=== PATIENT | female | born 1980 | race Caucasian/White ===

== ENCOUNTER → 2017-09-25 11:59 | Outpatient (CLI) | payer OTHER, SELFPAY ==
[2017-09-25 14:22] LABS: Absolute Lymphocyte Count 1.67 X10^3/ul (0.83-4.51); Absolute Neutrophil Count 5.6 X10^3/uL (2.0-7.7); BUN 14 mg/dL (7-18); Basophil# 0.02 X10^3/uL; Basophil% 0.2 % (0-1); Creatinine, Serum 0.65 mg/dL (0.55-1.02); Eosinophil# 0.07 X10^3/uL; Eosinophils% 0.9 % (0-5); Glucose 90 mg/dL (74-106); Hematocrit 39.6 % (37-47); Lymphocyte # 1.67 X10^3/ul (4.0); Lymphocyte % 20.8 % (19-41); Mean Corp Hgb Conc 32.8 g/gl (32-36); Mean Corpuscular Hgb 32.5 pg (27.0-32.0); Mean Platelet Vol. 10.2 fl (6.2-12.0); Monocyte# 0.64 X10^3/uL; Neutrophil # 5.63 X10^3/uL (2.7-7.7); Platelet Count 262 K/mm3 (150-450); RBC Distribution Width CV 11.9 % (11.6-14.6); RBC Distribution Width SD 42.8 fl (35.1-43.9)
[2017-09-25 14:23] LABS: ALB/GLOB Ratio 1.1 RATIO (0.9-2.4); AST(SGOT) 18 U/L (15-37); Alanine Aminotransfer ALT/SGPT 17 U/L (13-56); Albumin, Serum 3.6 g/dL (3.2-5.0); Alkaline Phosphatase 52 U/L (45-117); Anion Gap 3 (5-15); BUN/Creat Ratio 21.6 RATIO (10-20); Calcium,Total 8.6 mg/dL (8.5-10.1); Chloride 105 mmol/L (98-107); EST Glomerular Filtration Rate 109 mL/min (>60); Est Glom Filt Rate - Afr Amer 132 mL/min (>60); Globulin 3.2 g/dL (2.2-4.2); Protein, Total 6.8 g/dL (6.4-8.2); Sodium Level 140 mmol/L (136-145)
[2017-09-25 14:30] LABS: POSITIVE COUNT NO; POSITIVE DIFFERENTIAL NO; POSITIVE MORPHOLOGY NO
== END ==
PROVIDERS: Family Provider Student in an Organized Health Care Education/Training Program; PCP Student in an Organized Health Care Education/Training Program; Visit Provider Internal Medicine Rheumatology
DX: M05.79 Rheumatoid arthritis with rheumatoid factor of multiple sites without organ or systems involvement (principal); Z79.899 Other long term (current) drug therapy; M25.511 Pain in right shoulder; M75.41 Impingement syndrome of right shoulder; E03.8 Other specified hypothyroidism
CPT/HCPCS: 36415; 80053; 85025

== ENCOUNTER → 2017-12-25 14:00 | Outpatient (CLI) | payer OTHER, SELFPAY ==
[2017-12-25 15:43] LABS: ALB/GLOB Ratio 1.1 RATIO (0.9-2.4); AST(SGOT) 27 U/L (15-37); Alanine Aminotransfer ALT/SGPT 22 U/L (13-56); Albumin, Serum 3.6 g/dL (3.2-5.0); Alkaline Phosphatase 56 U/L (45-117); Anion Gap 7 (5-15); BUN 11 mg/dL (7-18); BUN/Creat Ratio 13.5 RATIO (10-20); Calcium,Total 8.6 mg/dL (8.5-10.1); Chloride 103 mmol/L (98-107); Creatinine, Serum 0.81 mg/dL (0.55-1.02); EST Glomerular Filtration Rate 84 mL/min (>60); Est Glom Filt Rate - Afr Amer 101 mL/min (>60); Globulin 3.2 g/dL (2.2-4.2); Glucose 105 mg/dL (74-106); Potassium 4.2 mmol/L (3.5-5.1); Protein, Total 6.8 g/dL (6.4-8.2); Sodium Level 141 mmol/L (136-145)
[2017-12-25 18:05] LABS: Absolute Neutrophil Count 4.9 X10^3/uL (2.0-7.7); Basophil# 0.01 X10^3/uL; Basophil% 0.1 % (0-1); Eosinophil# 0.16 X10^3/uL; Eosinophils% 2.3 % (0-5); Hematocrit 39.9 % (37-47); Hemoglobin 12.6 g/dl (12.0-15.0); Lymphocyte % 14.5 % (19-41); Mean Corp Hgb Conc 31.6 g/gl (32-36); Mean Corpuscular Hgb 30.8 pg (27.0-32.0); Mean Corpuscular Volume 97.6 fL (81-99); Mean Platelet Vol. 10.2 fl (6.2-12.0); Monocyte# 0.83 X10^3/uL; Monocyte% 12.1 % (0-10); Neutrophil # 4.87 X10^3/uL (2.7-7.7); Neutrophil % 70.9 % (47-70); Platelet Count 269 K/mm3 (150-450); RBC Distribution Width CV 14.1 % (11.6-14.6); RBC Distribution Width SD 49.9 fl (35.1-43.9); Red Blood Count 4.09 M/mm3 (4.2-5.4); White Blood Count 6.9 K/mm3 (4.4-11.0)
[2017-12-25 18:08] LABS: POSITIVE COUNT NO; POSITIVE DIFFERENTIAL NO; POSITIVE MORPHOLOGY NO
== END ==
PROVIDERS: Family Provider Student in an Organized Health Care Education/Training Program; PCP Student in an Organized Health Care Education/Training Program; Visit Provider Internal Medicine Rheumatology
DX: M05.79 Rheumatoid arthritis with rheumatoid factor of multiple sites without organ or systems involvement (principal); Z79.899 Other long term (current) drug therapy; M25.511 Pain in right shoulder; M75.41 Impingement syndrome of right shoulder; E03.8 Other specified hypothyroidism
CPT/HCPCS: 36415; 80053; 85025

== ENCOUNTER → 2018-08-15 09:36 | Outpatient (CLI) | payer OTHER, SELFPAY ==
--- NOTE | 2018-08-15 09:47 | MRI_ITS ---
STUDY: MRI LEFT WRIST WITHOUT CONTRAST REASON FOR EXAM: Left wrist pain, no specific injury, rheumatoid arthritis. TECHNIQUE: Standardized fat and water weighted pulse sequences were obtained in all 3 orthogonal planes. COMPARISON: Radiographs 04/01/2014. FINDINGS: Normal visualized distal radius and ulna. Normal distal radioulnar articulation (DRUJ). Normal triangular fibrocartilaginous complex (TFCC). There are small cysts in the trapezoid (inversion recovery coronal image 11), capitate (inversion recovery coronal image 11) and hamate (inversion recovery coronal image 13). Otherwise, normal carpal bones. Normal radiocarpal, intercarpal and midcarpal articulations. Normal pisotriquetral articulation. Normal visualized interosseous scapholunate ligament. There is minimal fluid in the second dorsal compartment (inversion recovery axial image 15). Otherwise, unremarkable extensor tendons. Normal flexor tendons. Normal carpal tunnel with a normal median nerve. Normal carpometacarpal articulation of the thumb. Normal second through fifth carpometacarpal articulations. There is no demonstrated soft tissue abnormality. MRI/Upper Ext Joint Only(Routine) IMPRESSION: Small intraosseous cysts in the trapezoid, capitate and hamate. Otherwise, unremarkable MRI of the left wrist without demonstrated osseous erosions, bone edema or synovitis. Electronically Signed: Bacilio Cotto MD at 13:43 EST Tel , Service support ,
--- NOTE | 2018-08-15 09:48 | MRI_ITS ---
STUDY: MRI LEFT HAND REASON FOR EXAM: Hand pain, no specific injury, rheumatoid arthritis. TECHNIQUE: Standardized fat and water weighted pulse sequences were obtained in all 3 orthogonal planes. COMPARISON: None. FINDINGS: There is no bone edema of the metacarpals or phalanges. There is a small volume of fluid in the flexor pollicis longus tendon sheath at the level of the proximal phalanx (inversion recovery coronal images 9, 10; inversion recovery axial images 9-12). There is a small volume of fluid in the flexor tendon sheath of the fifth digit at the level of the proximal phalanx (inversion recovery axial images 18, 19). There is peritendinitis of the second extensor tendon at the level of the distal metacarpal (inversion recovery axial images 12, 13). Otherwise, normal flexor and extensor tendons. There is a small subchondral cyst in the ulnar aspect of the head of the fifth metacarpal (inversion recovery coronal image 12; inversion recovery axial image 13). Otherwise, normal metacarpophalangeal joints without marginal osseous erosions or joint effusions. Normal interphalangeal joints without marginal osseous erosions or joint effusions. There is no discrete soft tissue mass or cyst. MRI/Upper Ext/No Jt/ wo IMPRESSION: Mild flexor tenosynovitis of the first and fifth digits. Peritendinitis of the second extensor tendon. Small subchondral cyst in the head of the fifth metacarpal. No demonstrated osseous erosions or bone edema. Electronically Signed: Bacilio Cotto MD at 13:42 EST Tel , Service support ,
== END ==
PROVIDERS: Family Provider Student in an Organized Health Care Education/Training Program; PCP Student in an Organized Health Care Education/Training Program
DX: M79.642 Pain in left hand (principal); M25.532 Pain in left wrist
CPT/HCPCS: 73218; 73221